=== PATIENT | male | born 1975 | race Caucasian/White ===

== ENCOUNTER 2024-10-17 18:28 | Emergency (ER) | payer OTHER, SELFPAY ==
[2024-10-17 18:28] VITALS: BP 150/88; PULSE 72; RESP 14; TEMP 36.1; O2SAT 98; BMI 23.1
--- NOTE | 2024-10-17 18:41 | EDS_ITS ---
HPI History of Present Illness Chief Complaint: Eye Problem Detail of Chief Complaint: Sent from urgent care because of dilated right eye after putting histamine Informant: patient Onset/Context/Timing Location: Right Eye Onset: Today Context: Sudden Onset Timing: Continuous Current Severity: Dilated right pupil Maximum Severity: Dilated right pupil Worsened by: Antihistamine drops Relieved by: Not applicable Associated Symptoms Associated Symptoms - Eyes: Foreign body sensation (Patient states he got dust in his eye cleaning his son's room yesterday. He states he flushed it yesterday. Today he purchased antihistamine drops and has been using 1 drop every several hours. He noticed his eye was dilated and went to the urgent care.); Negative for Pain or Photophobia History of injury: Yes Visual correction: Glasses and Corrective contact lenses Narrative Narrative: Patient is a 49-year-old male. He got dust in his eye. He feels a foreign body sensation. He continued to have foreign body sensations in spite of flushing his eye. He purchased antihistamine drops from the pharmacy. He has placed several drops in the eye since this morning. He went to urgent care because he noted his right pupil was dilated. The provider at the urgent care felt he needed to be seen in the emergency room because of his dilated pupil. He denies headache. He denies change in his vision. He denies drainage from his eye. Eyes matting of his eyelash. Prior similar symptoms: No Recent Illness/Hospitalization: No [facility] Medical History (Updated 10/17/24 @ 19:[address] Simone Shah MD) Inguinal hernia Umbilical hernia Open skull fracture Anxiety OCD (obsessive compulsive disorder) Medical History no medical history no medical history Home Medications ?Medication ?Instructions ?Recorded ?Last Taken ?Type ciprofloxacin HCl 0.3 % eye drops 1 drp RIGHT EYE Q4H 4 days #2.5 mL 10/17/24 Unknown Rx Allergy/AdvReac Type Severity Reaction Status Date / Time azithromycin AdvReac Hives Verified 10/17/24 18:29 Family History no significant family his Surgical History no surgical history no surgical history Social History Smoking Status: Never smoker ROS ROS ED Eyes Eyes: Reports other Details: Detailed HPI narrative ; Denies blurry vision, change in vision or diplopia ENT ENT ED: Denies ear pain, rhinorrhea or sore throat Cardiovascular Cardiovascular: Denies chest pain or palpitations Gastrointestinal Gastrointestinal: Denies nausea or vomiting Neurologic Neurologic: Denies headache(s) EXAM Physical Exam Const Vital Signs: 10/17/24 18:28 Temperature 96.9 F L Temperature Source Temporal Pulse Rate 72 Respiratory Rate 14 Blood Pressure 150/88 H Blood Pressure Mean 108 Pulse Ox 98 Oxygen Delivery Method Room Air Positive well nourished and well developed General Appearance ED: well developed and NAD HEENT atraumatic; Negative for tenderness Nose: external nose normal Eyes Eyes Narrative: Extract muscles intact. The right pupil is dilated. Does not react to light. This is due to the antihistamine drops. There is no abnormality of the lid, lacrimal oophoritis or lash. There is no drainage noted. Neck no lymphadenopathy, supple and no JVD Resp normal respiratory effort Cardio regular rate and regular rhythm Neuro oriented x3 and CN's II-XII intact bilaterally Sensorium / Orientation: alert Psych Psych Narrative: Normal Skin no wounds MDM MDM MDM Narrative Medical decision making narrative: Visual acuity at the urgent care was 20/15. Order was placed for tetracaine, fluorescein and slit lamp. Procedures Other Procedures Procedure(s): I was Nestabs tetracaine and stained with fluorescein. Under slit-lamp examination there is no abnormality noted of the left eye. There is small punctate uptake fluorescein inferior half of the cornea on the right. There is no flare or cells. Suspect this is due to the fact he had dust in his eyes and rubbed his eyes. He was told the eye is dehydrated because of the drops he put in it. Discharge Plan Triage Chief Complaint: Eye Problem ED Provider: Simone Shah Dx/Rx/DC Orders Clinical Impression: Corneal abrasion, left, Mydriasis not due to mydriatic, Elevated blood-pressure reading without diagnosis of hypertension Instructions: ED Corneal Abrasion, ED Hypertension, To Be Confirmed Prescriptions: New ciprofloxacin HCl 0.3 % drops 1 drp RIGHT EYE Q4H 4 Days Qty: 2.5 0RF Rx Instructions: administer while awake Primary Care Provider: MAVERICK CHAMBERS Referrals: MAVERICK CHAMBERS DO [Primary Care Provider] - 1-2 Weeks Je Alexander MD [Med Staff - Active Staff] - 3-5 Days if not improving Activity Restrictions/Additional Instructions: Your blood pressure was elevated today. Would recommend having it checked in 1 to 2 weeks. If there is no improvement with your eye symptoms in [address] Alexander for repeat examination Print Language: Belgian Disposition Disposition: Home, Self Care
[2024-10-17] MEDS: Tetracaine 0.5% Ophthalmic Bottle 1 DRP OPHTHALMIC (18:45)
[2024-10-17 19:20] VITALS: BP 148/78; PULSE 72; RESP 14; TEMP 36.1; O2SAT 98
== END 2024-10-17 19:21 | disposition home or self-care (01) ==
PROVIDERS: Emergency Provider Emergency Medicine; PCP Family Medicine; Visit Provider Emergency Medicine
DX: S05.02XA Injury of conjunctiva and corneal abrasion without foreign body, left eye, initial encounter (principal); X58.XXXA Exposure to other specified factors, initial encounter; H57.04 Mydriasis
CPT/HCPCS: 99283